=== PATIENT | female | born 1970 | race Caucasian/White ===

== ENCOUNTER → 2020-10-02 15:11 | Outpatient (CLI) | payer OTHER, SELFPAY ==
--- NOTE | ~2020-10-02 | MR_ITS ---
EXAMINATION: MR lumbar spine wo con DATE: 10/02/2020 16:16 INDICATION: Lumbar radiculopathy. TECHNIQUE: Magnetic resonance imaging (MRI) of the lumbar spine was performed without intravenous con trast. Sequences included sagittal T2-weighted FSE, sagittal T2-weighted FS FSE, sagittal T1-weighted FSE, and axial T2-weighted FSE. COMPARISON: Lumbar spine MRI 09/01/2013 FINDINGS: There is 4 mm anterolisthesis of L4 on L5. Vertebral body heights are normal. There is mild ly decreased disc height at L4-L5. The distal spinal cord signal intensity is normal. The conus medul lina is at L1-L2. The following disc levels are specifically discussed: L1-L2: There is a central protrusion. There is mild bilateral facet joint osteoarthritis. There is no neural foraminal stenosis. There is mild central canal stenosis. L2-L3: The disc does not extend beyond the endplate margin. There is no facet joint osteoarthritis. T here is no neural foraminal stenosis. There is no central canal stenosis. L3-L4: The disc does not extend beyond the endplate margin. There is moderate bilateral facet joint o steoarthritis. There is no neural foraminal stenosis. There is no central canal stenosis. L4-L5: The disc is bulging. There is severe bilateral facet joint osteoarthritis. There is moderate b ilateral neural foraminal stenosis. There is severe central canal stenosis. L5-S1: The disc is bulging and has an annular fissure. There is severe bilateral facet joint osteoart hritis. There is mild bilateral neural foraminal stenosis. There is mild central canal stenosis. IMPRESSION: 1. Severe lumbar spondylosis, worsened from 09/01/2013. Reviewed, dictated and finalized at location A.
== END ==
PROVIDERS: PCP Internal Medicine
DX: M47.26 Other spondylosis with radiculopathy, lumbar region (principal)
CPT/HCPCS: 72148

== ENCOUNTER 2023-06-20 01:34 | Day surgery (SDC) | payer BC, SELFPAY ==
[2023-06-13 15:03] VITALS: BMI 38.0
[2023-06-20 11:11] VITALS: BP 159/86; PULSE 84; RESP 20; TEMP 36.6; O2SAT 97; BMI 37.1
[2023-06-20] MEDS: LACTATED RINGERS 1,000 ML 150 ML IV CONT (11:20)
--- NOTE | 2023-06-20 11:25 | WPDANESEPPF ---
Anes - Initial Pre Proc Eval Procedure: Operation Date: 06/20/23 12:30 Proposed Procedures p Screening Colonoscopy - Emil Clay MD Date/Time: 06/20/23 11:25 Surgeon: Emil Clay MD Pre Op Diagnosis: neoplasm screening Patient Data Age: 53 Gender: F Height: 1.73 m Weight: 110.9 kg Last Vital Signs Temp 97.9 F 06/20/23 11:11 Pulse 84 06/20/23 11:11 Resp 20 06/20/23 11:11 BP 159/86 H 06/20/23 11:11 Pulse Ox 97 06/20/23 11:11 O2 Del Method Room Air 06/20/23 11:11 Allergies Allergy/AdvReac Type Severity Reaction Status Date / Time PREM Inhibitors Allergy Severe Other Verified 06/20/23 11:10 Sulfa (Sulfonamide Allergy Intermediate Rash Verified 06/20/23 11:10 Antibiotics) Home Medications Medication Instructions Recorded Confirmed Type amlodipine 5 mg tablet 5 mg PO DAILY 06/20/20 06/13/23 History celecoxib 100 mg capsule (Celebrex) 100 mg PO BID 06/20/20 06/13/23 History metoprolol succinate 50 mg 50 mg PO BID 06/20/20 06/13/23 History tablet,extended release 24 hr pantoprazole 40 mg tablet,delayed 40 mg PO QAM 06/20/20 06/13/23 History release (Protonix) pregabalin 100 mg capsule (Lyrica) 100 mg PO BID 06/28/21 06/13/23 History vortioxetine 10 mg tablet 10 mg PO DAILY 06/28/21 06/13/23 History (Trintellix) Glucosamine Chondroitin 1 tab-cap PO DAILY 06/13/23 06/13/23 History One-A-Day Women VitaCraves 1 gummy PO DAILY 06/13/23 06/13/23 History cholecalciferol (vitamin D3) 50 50 mcg PO DAILY 06/13/23 06/13/23 History mcg (2,000 unit) tablet (Vitamin D3) amoxicillin 875 mg-potassium 1 tablet PO BID 06/20/23 06/20/23 History clavulanate 125 mg tablet Patient hx anesthesia problems: none Family hx anesthesia problems: none Results Review: All pre-operative results and documents have been reviewed as part of the pre-operative evaluation. [facility] Past Medical History Medical History (Updated 07/02/22 @ 11:03 by Sammy Yip MD) Chronic back pain History of hypertension Osteoarthritis Pneumonia Post-menopausal bleeding Screening mammogram, encounter for Surgical History Surgical History (Updated 06/28/21 @ 15:44 by LORIN Stoll) History of back surgery (12/13/20) spinal decompression of lower back History of orthopedic surgery 10/12/09 rt wrist fx repair History of repair of rotator cuff 2001 lt rotator cuff repair Family History Family History Father Hypertension Cerebrovascular accident Asthma Congestive heart failure Transient cerebral ischemia COPD (chronic obstructive pulmonary disease) Leukemia Mother Diabetes mellitus Hypertension Heart disease Grandparent Cerebrovascular accident Grandparent Hypertension Social History Social History (Updated 06/28/21 @ 15:45 by LORIN Stoll) Smoking status: Never smoker Alcohol intake: current Substance use: never Substance use type: does not use Living arrangements: with family Additional living arrangements comments: spouse Occupation/Education: occupation 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 Gender identity (if verbalized by the patient): Female Sexual Orientation (if Verbalized by the Patient): Straight or Heterosexual Spiritual care concerns: No Anes - Eval Final PreProcedure Day of Procedure 06/20/23 11:25 Patient weight: obese Heart: regular rate and rhythm Lungs: clear to auscultation Airway: Mallampati scale class II Neurological: alert and oriented Last oral intake: >/= 8 hours ASA classification: III Emergent: no Anesthetic plan: proceed Anesthesia type and monitoring: general GIVS and standard monitoring Results Review: All pre-operative results and documents have been reviewed as part of the pre-operative evaluation. Informed Consent: The patient's anesthetic plan and its attendant risks and be
[2023-06-20 11:37] VITALS: BP 105/67; PULSE 70; RESP 21; O2SAT 97
--- NOTE | 2023-06-20 11:50 | PM.HPGS ---
History of Present Illness History of Present Illness Consent: Risks, benefits, and alternatives have been discussed and questions answered. Patient agrees to proceed with procedure. Chief complaint: neoplasm screening Narrative: Roselia Davies is a 53 year old female here for first screening colonoscopy Review of Systems Constitutional: Constitutional: Denies headache(s) and Denies weakness Eyes: Eyes: Denies blurry vision ENT: Reports Normal hearing present, Denies headache(s) and Denies neck pain Cardiovascular: Cardiovascular: Denies chest pain and Denies dyspnea Respiratory: Respiratory: Denies dyspnea Gastrointestinal: Gastrointestinal: Reports no additional gastrointestinal complaints Genitourinary: Genitourinary: Denies dysuria Musculoskeletal: Musculoskeletal: Denies neck pain Integumentary/Breasts: Skin/Breast: Denies dry skin Neurologic: Reports Normal hearing present, Denies headache(s) and Denies weakness Psychiatric: Psychiatric: Denies anxiety Endocrine: Endocrine: Denies change in body appearance Hematologic/Lymphatic: Hematologic/Lymphatic: Denies easy bleeding Allergic/Immunologic: Allergic/Immunologic: Denies urticaria PMF Past Medical History Medical History (Updated 06/20/23 @ 11:51 by Emil Clay MD) Chronic back pain Colon cancer screening History of hypertension Osteoarthritis Pneumonia Post-menopausal bleeding Screening mammogram, encounter for Surgical History Surgical History (Updated 06/28/21 @ 15:44 by LORIN Stoll) History of back surgery (12/13/20) spinal decompression of lower back History of orthopedic surgery 10/12/09 rt wrist fx repair History of repair of rotator cuff 2002 lt rotator cuff repair Family History Family History Father Hypertension Cerebrovascular accident Asthma Congestive heart failure Transient cerebral ischemia COPD (chronic obstructive pulmonary disease) Leukemia Mother Diabetes mellitus Hypertension Heart disease Grandparent Cerebrovascular accident Grandparent Hypertension Social History Social History (Updated 06/28/21 @ 15:45 by LORIN Stoll) Smoking status: Never smoker Alcohol intake: current Substance use: never Substance use type: does not use Living arrangements: with family Additional living arrangements comments: spouse Occupation/Education: occupation 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 Gender identity (if verbalized by the patient): Female Sexual Orientation (if Verbalized by the Patient): Straight or Heterosexual Spiritual care concerns: No Meds Home Medications and Allergies Home Medications Medication Instructions Recorded Confirmed Type amlodipine 5 mg tablet 5 mg PO DAILY 06/20/20 06/13/23 History celecoxib 100 mg capsule (Celebrex) 100 mg PO BID 06/20/20 06/13/23 History metoprolol succinate 50 mg 50 mg PO BID 06/20/20 06/13/23 History tablet,extended release 24 hr pantoprazole 40 mg tablet,delayed 40 mg PO QAM 06/20/20 06/13/23 History release (Protonix) pregabalin 100 mg capsule (Lyrica) 100 mg PO BID 06/28/21 06/13/23 History vortioxetine 10 mg tablet 10 mg PO DAILY 06/28/21 06/13/23 History (Trintellix) Glucosamine Chondroitin 1 tab-cap PO DAILY 06/13/23 06/13/23 History One-A-Day Women VitaCraves 1 gummy PO DAILY 06/13/23 06/13/23 History cholecalciferol (vitamin D3) 50 50 mcg PO DAILY 06/13/23 06/13/23 History mcg (2,000 unit) tablet (Vitamin D3) amoxicillin 875 mg-potassium 1 tablet PO BID 06/20/23 06/20/23 History clavulanate 125 mg tablet Allergies Allergy/AdvReac Type Severity Reaction Status Date / Time PREM Inhibitors Allergy Severe Other Verified 06/20/23 11:10 Sulfa (Sulfonamide Allergy Intermediate Rash Verified 06/20/23 11:10 Antibiotics) Vital Signs Vital Signs - 24 hr 06/20/23 11:11
[2023-06-20 12:05] VITALS: BP 106/69; PULSE 81; RESP 18; O2SAT 94
[2023-06-20 12:15] VITALS: BP 112/83; PULSE 77; RESP 18; O2SAT 98
[2023-06-20 12:26] VITALS: BP 159/81; PULSE 80; RESP 16; O2SAT 100
== END 2023-06-20 12:33 | disposition home or self-care (01) ==
PROVIDERS: PCP Internal Medicine; Visit Provider Internal Medicine Gastroenterology
PROC: 0DJD8ZZ Inspection of Lower Intestinal Tract, Via Natural or Artificial Opening Endoscopic (ICD-10-PCS; CPT 45378; principal; 2023-06-20 12:30)
DX: Z12.11 Encounter for screening for malignant neoplasm of colon (principal); K64.8 Other hemorrhoids
CPT/HCPCS: 45378; J2704; J7120